=== PATIENT | male | born 1980 | race Caucasian/White ===

== ENCOUNTER 2022-05-30 12:55 | Outpatient (CLI) | payer MEDICAID, SELFPAY ==
--- NOTE | 2022-05-30 | USCV_ITS ---
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 Technologist: Peter Ferguson [place]am Location: [facility] [place] Indication: family hx of chf BP: 136 / 72 HR: 55 Rhythm: Sinus Technical Quality: Adequate MEASUREMENTS (Male / Female) Normal Values 2D ECHO LV Diastolic Diameter PLAX 5.0 cm 4.2 - 5.9 / 3.9 - 5.3 cm LV Systolic Diameter PLAX 3.4 cm IVS Diastolic Thickness 0.7 cm 0.6 - 1.0 / 0.6 - 0.9 cm IVS Systolic Thickness 1.5 cm LVPW Diastolic Thickness 1.5 cm 0.6 - 1.0 / 0.6 - 0.9 cm LVPW Systolic Thickness 1.6 cm LVOT Diameter 2.0 cm LV Ejection Fraction 2D Teich 59.0 % LV Ejection Fraction MOD 2C 66.8 % LV Ejection Fraction 2C AL 67.4 % LA Diameter 3.6 cm LA Width 3.7 cm LA Height 5.3 cm RA Width 4.0 cm RA Height 5.0 cm Aorta at Sinotubular Diameter 2.5 cm IVC Diameter 1.4 cm M-MODE Aortic Annulus Diameter 2.9 cm LA Ao Ratio MM 1.4 MV E Point Septal Separation 0.5 cm DOPPLER AV Peak Velocity 138.7 cm/s LVOT Peak Velocity 107.0 cm/s AV Area Cont Eq vti 2.9 cm squared AV Area Cont Eq pk 2.4 cm squared MV Peak Velocity 163.0 cm/s MV Area PHT 3.1 cm squared Mitral E to A Ratio 1.1 MV E' Velocity 61.0 cm/s Mitral E to MV E' Ratio 14.6 Mitral E to LV E' Lateral Ratio 14.6 Mitral E to LV E' Septal Ratio 14.6 TR Peak Velocity 271.1 cm/s TR Peak Gradient 29.4 mmHg TR Mean Velocity 186.3 cm/s TR Mean Gradient 15.1 mmHg TR Velocity Time Integral 57.5 cm Right Atrial Pressure 3.0 mmHg Pulmonary Artery Systolic Pressu 32.4 mmHg PV Peak Velocity 94.0 cm/s RV Acceleration Time 0.1 s RV Ejection Time 0.3 s RV AcT/ET 0.5 FINDINGS Left Ventricle Left ventricle is normal in size. LV systolic function is normal with EF of 55 to 60%. No regional wall motion abnormalities are seen. Diastolic function is normal Right Ventricle Normal in size and function Right Atrium Normal in size Left Atrium Normal in size Mitral Valve Structurally normal mitral valve. Mild mitral regurgitation. Aortic Valve Aortic valve is thickened. No significant stenosis or regurgitation. Tricuspid Valve Mild tricuspid regurgitation. Insufficient TR jet to calculate RVSP Pulmonic Valve Normal in size Pericardium Normal Aorta Normal in size IVC Appears to be normal CONCLUSIONS LV systolic function is normal with EF 55 to 60%. Diastolic function is normal Mild mitral regurgitation Mild tricuspid regurgitation No comparison studies are available Haroon Hassan MD (Electronically Signed) Final Date: 30 May 2022 15:00 S
== END 2022-05-30 12:56 | disposition home or self-care (01) ==
LOC: RAD 12:56
PROVIDERS: Family Provider Registered Nurse; PCP Nurse Practitioner; Visit Provider Nurse Practitioner Family
DX: N52.8 Other male erectile dysfunction (principal)
CPT/HCPCS: 93306

== ENCOUNTER 2022-12-22 14:06 | Outpatient (CLI) | payer MEDICAID, SELFPAY ==
--- NOTE | 2022-12-22 14:44 | XR_ITS ---
WS: [id number] EXAMINATION: XR hip BI 3-4V wo/w pel [id number] REASON FOR EXAM: L HIP PAIN COMPARISON: None available. ORDER DATE: 12/22/2022 2:49 PM TECHNIQUE: Frontal internal/external rotation views of each hip were obtained. X-RAY FINDINGS: There are no fractures or dislocations. Normal motion with internal/external rotation is present. No degenerative changes. IMPRESSION: 1. No fractures or dislocations of the hips. 2. Normal motion with internal/external rotation.
--- NOTE | 2022-12-22 14:56 | XR_ITS ---
WS: [id number] EXAMINATION: XR knee RT 3V* [id number] REASON FOR EXAM: CHRONIC PAIN OF R KNEE COMPARISON: None available. ORDER DATE: 12/22/2022 3:13 PM FINDINGS: There is no sign of any acute osseous or articular abnormality. Minor osteophytes of the tibial spine s. There are no specific soft tissue abnormalities. IMPRESSION: No acute articular or osseous change
--- NOTE | 2022-12-22 14:56 | XR_ITS ---
WS: [id number] EXAMINATION: XR lumbar spine 2-3V* [id number] L-SPINE : 3 views REASON FOR EXAM: CHRONIC R SIDED LOW BACK PAIN W/O SCIATICA COMPARISON: None available. ORDER DATE: 12/22/2022 3:13 PM FINDINGS: The lumbar vertebral bodies and the disc spaces are normal in width. In the lumbar vertebra, there i s no evidence of compression deformities or spondylolisthesis. 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 IMPRESSION: Possible lower spinal canal stenosis as noted however this would have to be verified by cross-section al imaging if clinically indicated. Be
== END 2022-12-22 14:07 | disposition home or self-care (01) ==
PROVIDERS: PCP Nurse Practitioner Family; Visit Provider Nurse Practitioner Family
DX: M25.552 Pain in left hip (principal); M25.551 Pain in right hip; G89.29 Other chronic pain; M54.50 Low back pain, unspecified; M25.561 Pain in right knee
CPT/HCPCS: 72100; 73522; 73562

== ENCOUNTER 2024-11-07 17:04 | Outpatient (CLI) | payer MEDICAID, SELFPAY ==
--- NOTE | 2024-11-07 17:15 | USCV_ITS ---
Geo Anderson(Jagdish) Age: 44 Gender: M : 1980 Exam Date: 11/07/2024 17:19 Ordering Phys: Jose Guevara DO Technologist: USR Exam Location: [facility] – [place] Indication: swelling HISTORY: Lower extremity swelling-LEFT PROCEDURES: Venous duplex imaging was performed in only the left lower extremity. The following venous structures were evaluated: common femoral vein, profunda vein, proximal portion of the greater saphenous vein, superficial femoral vein, and the popliteal vein. In addition, the posterior tibial and peroneal trunk were evaluated. FINDINGS: No evidence of DVT seen in any vessel visualized at this time. CONCLUSIONS No evidence of left lower extremity DVT. Derick Bermudez MD (Electronically Signed) Final Date: 07 November 2024 17:41 S
== END 2024-11-07 17:05 | disposition home or self-care (01) ==
LOC: RAD 17:07
PROVIDERS: PCP Nurse Practitioner Family; Visit Provider Family Medicine
DX: M79.89 Other specified soft tissue disorders (principal); R09.89 Other specified symptoms and signs involving the circulatory and respiratory systems
CPT/HCPCS: 93971

== ENCOUNTER → 2024-11-13 08:46 | Outpatient (BNVA) | payer MEDICAID, SELFPAY | PROVIDERS: PCP Family Medicine; Visit Provider Family Medicine | DX: E11.9 Type 2 diabetes mellitus without complications (principal); R79.89 Other specified abnormal findings of blood chemistry; I10 Essential (primary) hypertension; E11.42 Type 2 diabetes mellitus with diabetic polyneuropathy; E78.2 Mixed hyperlipidemia | CPT/HCPCS: 80053; 80061; 82043; 82607; 83036; 84443; 85025 ==

== ENCOUNTER → 2024-11-25 15:16 | Outpatient (BNVA) | payer MEDICAID, SELFPAY | PROVIDERS: PCP Family Medicine; Visit Provider Podiatrist Foot & Ankle Surgery | DX: L97.522 Non-pressure chronic ulcer of other part of left foot with fat layer exposed (principal); E11.40 Type 2 diabetes mellitus with diabetic neuropathy, unspecified; L84 Corns and callosities; Z86.31 Personal history of diabetic foot ulcer | CPT/HCPCS: 73630 ==